=== PATIENT | male | born 1990 | race Hispanic/Latino ===

== ENCOUNTER 2019-04-22 18:29 | Observation (INO) | payer BC, OTHER ==
[2019-04-22] MEDS ORDERED: Ondansetron PF 4 MG/2 ML Vial ONE (18:55)
[2019-04-22] MEDS ORDERED: Ketorolac Tromethamine 30 MG/ML VIAL ONE (18:55)
[2019-04-22] MEDS ORDERED: Morphine 4 MG/ML VIAL ONE (18:55)
[2019-04-22 19:28] LABS: #Basophils 0.1 thou/uL (0.0-0.2); #Monocytes 1.1 thou/uL (0.11-0.59); %Basophils 0.6 % (0.0-1.0); %Eosinophils 0.1 % (0.0-10.0); %Lymphocytes 5.6 % (21.0-51.0); %Monocytes 6.2 % (0.0-10.0); %Neutrophils 87.6 % (42.0-75.0); Hemoglobin 15.3 g/dL (14.0-18.0); Mean Corpuscular HGB CONC 33.5 g/dL (32.0-36.0); Mean Corpuscular Hemoglobin 29.7 pg (27.0-31.0); Mean Corpuscular Volume 88.5 fL (78.0-98.0); Mean Platelet Volume 11.3 fL (7.4-10.4); Platelet Count 205 thou/uL (130-400); RBC Distribution Width 11.9 % (11.5-14.5); Red Blood Cell (RBC) Count 5.16 mill/uL (4.70-6.10); White Blood Cell (WBC) Count 18.3 thou/uL (4.8-10.8)
[2019-04-22 19:47] LABS: ALT (SGPT) 20 U/L (8-55); AST (SGOT) 14 U/L (5-34); Albumin 4.5 g/dL (3.5-5.0); Alkaline Phosphatase 82 U/L (40-150); Anion Gap 15 mmol/L (10-20); BUN (Urea Nitrogen) 11 mg/dL (8.9-20.6); Bilirubin, Total 0.4 mg/dL (0.2-1.2); Calc. Creatinine Clearance 0 mL/min (70-130); Calcium 9.9 mg/dL (7.8-10.44); Carbon Dioxide 26 mmol/L (22-29); Chloride 104 mmol/L (98-107); Estimated GFR-MDRD Greater than 90; Globulin 3.9 g/dL (2.4-3.5); Glucose 111 mg/dL (70-105); Lipase 7 U/L (8-78); Potassium 3.1 mmol/L (3.5-5.1); Protein, Total 8.4 g/dL (6.0-8.3); Sodium 142 mmol/L (136-145)
--- NOTE | 2019-04-22 20:02 | ULT ---
SONOGRAM RIGHT UPPER QUADRANT: 04/22/19 HISTORY: Right upper quadrant pain. FINDINGS: Multiple echogenic shadowing structures are present within the gallbladder lumen. There is thickening of the gallbladder wall and small amount of pericholecystic fluid. Gallbladder is distended to great er than 12 cm. Patient was reportedly tender over the gallbladder fossa at the time of the exam. Comm on duct is slightly dilated at 0.8 cm. Liver is unremarkable. No free fluid. IMPRESSION: Cholelithiasis with multiple sonographic findings of acute cholecystitis, including positive sonograp hic Cope's sign. Common duct is also dilated at 0.8 cm. This raises concern for central biliary obstruction. POS: BST
[2019-04-22] MEDS: Morphine 4 MG/ML VIAL SLOW IVP PRN (22:23)
[2019-04-22] MEDS: Sodium Chloride 0.9% 1,000 ML IV SCH (22:24)
[2019-04-22] MEDS: cefOXitin 2 GM in Sodium Chloride 0.9% 100 ML IVPB SCH (22:24)
[2019-04-22] MEDS: Acetaminophen 1,000 MG in Premix Bag 1 BAG IVPB SCH (23:26)
[2019-04-23] MEDS: Morphine 4 MG/ML VIAL SLOW IVP PRN ×7 (01:23→23:31)
[2019-04-23] MEDS: Acetaminophen 1,000 MG in Premix Bag 1 BAG IVPB SCH (06:24)
[2019-04-23] MEDS: cefOXitin 2 GM in Sodium Chloride 0.9% 100 ML IVPB SCH ×2 (06:25→22:09)
[2019-04-23] MEDS ORDERED: Morphine 2 MG/ML SYRINGE SLOW IVP PRN (07:10)
--- NOTE | 2019-04-23 07:27 | HP ---
CHIEF COMPLAINT: Upper abdominal pain. HISTORY OF PRESENT ILLNESS: This is a 28-year-old male with a history of severe sharp upper abdominal pain, described as 8/10. He describes it as a dull ache in the left upper quadrant, but when the ER physician pushed in his right upper abdomen, he had more severe pain. Ultrasound reveals cholecystitis. He has borderline common bile duct size. He has normal LFTs. He denies previous known history of jaundice, gallstone pancreatitis. PAST MEDICAL HISTORY: He denies. SURGICAL HISTORY: He denies. MEDICINES DAILY: None. ALLERGIES: NO KNOWN DRUG ALLERGIES. SOCIAL HISTORY: No smoking. Occasional alcohol. No other drugs. REVIEW OF SYSTEMS: Ten-system review of systems otherwise negative unless described above. PHYSICAL EXAMINATION: VITAL SIGNS: Blood pressure is 121/74, pulse 94, respirations 16, 99.3 is his temperature. HEENT: Sclerae anicteric. Oropharynx clear. NECK: No lymphadenopathy. CHEST: Clear. HEART: Regular rate and rhythm. ABDOMEN: Soft, tender in the upper abdomen with guarding in the right upper quadrant. No abdominal or inguinal hernias. EXTREMITIES: No ischemic or edema to extremities. IMAGING: Ultrasound shows gallbladder findings suggestive of acute cholecystitis, dilated common bile duct at 8 mm. Liver function tests normal. LABORATORY DATA: White cell count is 18, platelets are 205. ASSESSMENT: Acute cholecystitis with dilated common bile duct. PLAN: Laparoscopic cholecystectomy with intraoperative cholangiogram. Risks, benefits, and alternatives were discussed. He gives consent. We will do this today. Job ID: [id number]
[2019-04-23] MEDS: Sodium Chloride 0.9% 1,000 ML IV SCH ×2 (10:56→22:09)
[2019-04-23] MEDS: Acetaminophen 1,000 MG in Premix Bag 1 BAG IVPB PRN (19:00)
[2019-04-23 23:47] VITALS: BMI 26.8
[2019-04-24] MEDS: Acetaminophen 1,000 MG in Premix Bag 1 BAG IVPB PRN (03:30)
[2019-04-24] MEDS: Sodium Chloride 0.9% 1,000 ML IV SCH ×2 (04:56→14:31)
[2019-04-24] MEDS: cefOXitin 2 GM in Sodium Chloride 0.9% 100 ML IVPB SCH (04:56)
[2019-04-24] MEDS: Morphine 4 MG/ML VIAL SLOW IVP PRN (05:53)
[2019-04-24 06:00] LABS: #Eosinphils 0.1 thou/uL (0.0-0.7); #Lymphocytes 2.4 thou/uL (1.20-3.40); #Monocytes 2.3 thou/uL (0.11-0.59); #Neutrophils 14.1 thou/uL (1.40-6.50); %Basophils 0.2 % (0.0-1.0); %Eosinophils 0.6 % (0.0-10.0); %Lymphocytes 12.6 % (21.0-51.0); %Neutrophils 74.5 % (42.0-75.0); Hemoglobin 13.9 g/dL (14.0-18.0); Mean Corpuscular HGB CONC 33.3 g/dL (32.0-36.0); Mean Corpuscular Hemoglobin 29.6 pg (27.0-31.0); Mean Platelet Volume 9.7 fL (7.4-10.4); Platelet Count 162 thou/uL (130-400); RBC Distribution Width 11.9 % (11.5-14.5); Red Blood Cell (RBC) Count 4.68 mill/uL (4.70-6.10); White Blood Cell (WBC) Count 18.9 thou/uL (4.8-10.8)
[2019-04-24 06:21] LABS: ALT (SGPT) 29 U/L (8-55); AST (SGOT) 25 U/L (5-34); Albumin 3.9 g/dL (3.5-5.0); Alkaline Phosphatase 76 U/L (40-150); Anion Gap 11 mmol/L (10-20); BUN (Urea Nitrogen) 5 mg/dL (8.9-20.6); Calc. Creatinine Clearance 151 mL/min (70-130); Calcium 9.2 mg/dL (7.8-10.44); Carbon Dioxide 24 mmol/L (22-29); Chloride 102 mmol/L (98-107); Estimated GFR-MDRD Greater than 90; Globulin 3.5 g/dL (2.4-3.5); Glucose 106 mg/dL (70-105); Lipase 7 U/L (8-78); Potassium 3.6 mmol/L (3.5-5.1); Protein, Total 7.4 g/dL (6.0-8.3); Sodium 133 mmol/L (136-145)
[2019-04-24] MEDS ORDERED: Morphine 4 MG/ML VIAL ONE (08:31)
[2019-04-24] MEDS ORDERED: Glycopyrrolate 0.2 MG/ML 5 ML SYRINGE ONE (09:09)
[2019-04-24] MEDS ORDERED: PROPOFOL 200 MG/20 ML VIAL ONE (09:09)
[2019-04-24] MEDS ORDERED: Dexamethasone 20 MG/5 ML VIAL ONE (09:09)
[2019-04-24] MEDS ORDERED: Lidocaine 1% PF 5 ML VIAL ONE (09:09)
[2019-04-24] MEDS ORDERED: Rocuronium Bromide 10 MG/ML (10ML VIAL) ONE (09:09)
[2019-04-24] MEDS ORDERED: Ondansetron PF 4 MG/2 ML Vial ONE (09:09)
[2019-04-24] MEDS ORDERED: cefOXitin 2 GM VIAL ONE ×2 (09:44→09:46)
[2019-04-24] MEDS ORDERED: Sodium Chloride 0.9% 100 ML ONE (09:47)
[2019-04-24] MEDS ORDERED: Bupivacaine/Epinephrine 0.25% 30 ML VIAL ONE (09:54)
[2019-04-24] MEDS ORDERED: Iothalamate Meglumine 60% 50 ML VIAL FS ONE (09:54)
[2019-04-24] MEDS ORDERED: Fentanyl 100 MCG/2 ML VIAL ONE (09:59)
[2019-04-24] MEDS ORDERED: cefOXitin 2 GM in Sodium Chloride 0.9% 100 ML IVPB SCH (13:00)
[2019-04-24] MEDS ORDERED: cefOXitin Sodium/Dextrose,Iso 2 GM in Premix Bag 1 BAG IVPB SCH (13:00)
--- NOTE | 2019-04-24 13:25 | RAD ---
INTRAOPERATIVE CHOLANGIOGRAM: Date: 04/24/19 COMPARISON: None. HISTORY: Cholecystectomy. FINDINGS: Single image from an intraoperative cholangiogram provided. There is contrast media within the common bile duct and duodenum. The distal common bile duct appears narrowed, which could signify stricture or could simply be on the basis of incomplete opacification/ distention. No filling defect is seen within the CBD. IMPRESSION: Distal CBD demonstrates nonspecific mild narrowing, which is of uncertain significance on a single vi ew. No filling defect is seen within the common bile duct. POS: OFF
[2019-04-24] MEDS ORDERED: Acetaminophen 325 MG TAB PO PRN (13:54)
[2019-04-24] MEDS ORDERED: HYDROcodone/Acetaminophen 5/325 mg Tablet PO PRN (13:54)
[2019-04-24] MEDS ORDERED: Promethazine 25 MG TAB PO PRN (13:54)
[2019-04-24] MEDS ORDERED: Ibuprofen 200 MG TAB PO PRN (13:54)
--- NOTE | 2019-04-24 14:31 | PDOC.OP ---
Operative Note - Operative Note Operative Note: DATE OF PROCEDURE: 04/24/2019 PROCEDURES: Laparoscopic cholecystectomy with intraoperative cholangiogram. SURGEON: Joycelyn Lakhani M.D. PREOPERATIVE DIAGNOSIS: Cholelithiasis and cholecystitis POSTOPERATIVE DIAGNOSIS: Cholelithiasis and cholecystitis FINDINGS: Severely inflamed and thickened gallbladder, normal intraoperative cholangiogram HISTORY: Patient with signs and symptoms of cholecystitis. Laparoscopic cholecystectomy was recommended for symptomatic relief and prevention of future episodes. Intraoperative cholangiogram was also recommended due to a dilated common bile duct. PROCEDURE: After informed consent was obtained and appropriate preoperative antibiotics were administered, the patient was taken to the operating room and placed in the supine position and general endotracheal anesthesia was administered. The stomach was decompressed with an OG tube and the abdomen was prepped and draped in standard sterile fashion. Local anesthesia was infused to the skin and subcutaneous tissues at the umbilical level. A transverse skin incision was made. The fascia was elevated and a Veress needle was placed into the abdominal cavity without difficulty. Opening pressure was less than 5 and carbon dioxide gas easily insufflated to an intra-abdominal pressure of 15, which the patient tolerated well. The Veress needle was withdrawn and a [place] port advanced under direct vision. The abdominal cavity was carefully examined. There was no evidence of Veress needle or of trocar injury. Local anesthesia was infused to the skin and subcutaneous tissues at the epigastric, right upper quadrant, and right lateral abdominal sites and trocars were placed under direct vision of the laparoscope. The gallbladder was entirely obscured by omentum but the omental adhesions were acute and were able to be dissected bluntly off of the gallbladder exposing the very distended and inflamed gallbladder. The fundus of the gallbladder was too taut to grasp so was aspirated with removal of a large amount of thick dark bile. The fundus of the gallbladder was grasped and retracted superiorly. The lower portion of the gallbladder was encased in thick inflamed fat in the infundibulum was not clearly visible, therefore the serosa was stripped inferiorly, exposing the wall of the gallbladder which was traced down to the infundibulum. The infundibulum was grasped and retracted laterally. The fatty tissue was meticulously dissected free of the structures at the level of the neck of the gallbladder exposing the cystic duct and artery which were traced clearly to their insertion in the gallbladder. The cystic artery was anterior to the cystic duct and was clipped and divided to gain access to the cystic duct. The cystic duct was clipped at the level of the neck of the gallbladder. An incision was made in the cystic duct inferior to the clip and the cystic duct was palpated with no stones palpable. Clear bile was seen to flow from the cystic duct incision. A cholangiogram catheter was introduced and placed into the cystic duct and secured with a clip. A cholangiogram was obtained which showed an adequate length of cystic duct. There was normal filling of the common bile duct with free flow of contrast into the duodenum. There was normal retrograde flow into the common hepatic duct beyond the level of the bifurcation without filling defects. The cholangiogram catheter was removed and the cystic duct clipped below the incision in the cystic duct. The cystic duct was divided between these clips and the previously placed clip. The gallbladder was then dissected free of the gallbladder bed using hook electrocautery with moderate difficulty due to the inflamed thickened nature of the gallbladder wall and the severe edema in the wall of the gallbladder. Prior to complete removal of the gallbladder from the gallbladder bed, the area of the cystic duct and artery stumps was examined. The clips were in good position completely across these structures and there was no bleeding and no leakage of bile. The gallbladder was then placed into an EndoCatch bag and drawn out through the epigastric incision, after crushing and removing several stones. Due to the very thickened and inflamed nature of the gallbladder, the wall tore during extraction and the gallbladder was removed in multiple pieces. The epigastric trocar was replaced and the operative site easily irrigated to clear. There was no significant bleeding or spillage of bile. The epigastric trocar was removed and the fascia closed under direct laparoscopic vision with a 0 Vicryl suture on a [place] needle in a [id number] manner with excellent technical result. The right upper quadrant and right lateral abdominal trocars were removed and hemostasis verified. Carbon dioxide gas was allowed to desufflate through the umbilical trocar which was then removed. The skin incisions were closed with 4-0 subcuticular Monocryl sutures and Dermabond dressings were placed. The patient was extubated and taken to the recovery room in good condition. There were no complications. ESTIMATED BLOOD LOSS: Minimal. SPECIMEN : Gallbladder and contents.
[2019-04-24 15:50] VITALS: BP 130/70; TEMP 98.3
== END 2019-04-24 17:20 | disposition home or self-care (01) ==
LOC: SCSER 18:29 → SURG B 20:15
PROVIDERS: ADMIT Surgery; ATTEND Surgery
PROC: 0FT44ZZ Resection of Gallbladder, Percutaneous Endoscopic Approach (ICD-10-PCS; principal; 2019-04-24)
PROC: BF031ZZ Plain Radiography of Gallbladder and Bile Ducts using Low Osmolar Contrast (ICD-10-PCS; 2019-04-24)
DX: K80.00 Calculus of gallbladder with acute cholecystitis without obstruction (principal)
CPT/HCPCS: 36415; 36416; 47532; 76705; 80053; 83690; 85025; 88304; 96361; 96365; 96366; 96374; 96375; 96376; G0378; J0131; J0694; J1100; J1610; J1885; J2001; J2270; J2405; J2704; J3010; J3490

== ENCOUNTER 2020-06-30 15:07 | Outpatient (CLI) | payer OTHER | END 2020-06-30 15:08 | disposition home or self-care (01) | LOC: DTY/OP 15:07 | PROVIDERS: ATTEND Family Medicine | DX: E66.3 Overweight (principal); Z90.49 Acquired absence of other specified parts of digestive tract | CPT/HCPCS: 97802 ==

== ENCOUNTER 2022-12-07 10:24 | Outpatient (CLI) | payer OTHER | END 2022-12-07 10:25 | disposition home or self-care (01) | LOC: BICRAD 10:24 | PROVIDERS: ATTEND Family Medicine | DX: M54.50 Low back pain, unspecified (principal) | CPT/HCPCS: 72100 ==

== ENCOUNTER 2022-12-17 18:00 | Outpatient (CLI) | payer OTHER | END 2022-12-17 18:01 | disposition home or self-care (01) | LOC: SLEEPLAB 18:00 | PROVIDERS: ATTEND Family Medicine | DX: G47.9 Sleep disorder, unspecified (principal); R06.83 Snoring | CPT/HCPCS: 95800 ==

== ENCOUNTER 2023-07-12 10:31 | Day surgery (SDC) | payer OTHER ==
[2023-07-11 13:30] VITALS: BMI 25.0
[2023-07-12] MEDS ORDERED: PROPOFOL 200 MG/20 ML VIAL ONE (14:08)
== END 2023-07-12 15:28 | disposition home or self-care (01) ==
LOC: SDC 10:31
PROVIDERS: ATTEND Internal Medicine Gastroenterology
PROC: 0DJD8ZZ Inspection of Lower Intestinal Tract, Via Natural or Artificial Opening Endoscopic (ICD-10-PCS; principal; 2023-07-12)
PROC: 0DB38ZX Excision of Lower Esophagus, Via Natural or Artificial Opening Endoscopic, Diagnostic (ICD-10-PCS; principal; 2023-07-12)
DX: K21.00 Gastro-esophageal reflux disease with esophagitis, without bleeding (principal); K31.89 Other diseases of stomach and duodenum; K22.10 Ulcer of esophagus without bleeding; K29.50 Unspecified chronic gastritis without bleeding; K44.9 Diaphragmatic hernia without obstruction or gangrene; K64.9 Unspecified hemorrhoids; G47.30 Sleep apnea, unspecified; K21.9 Gastro-esophageal reflux disease without esophagitis; Z90.49 Acquired absence of other specified parts of digestive tract; Z80.0 Family history of malignant neoplasm of digestive organs; Z79.899 Other long term (current) drug therapy
CPT/HCPCS: 88305; J2704

== ENCOUNTER 2024-02-06 09:12 | Outpatient (CLI) | payer OTHER | END 2024-02-06 09:13 | disposition home or self-care (01) | LOC: BICRAD 09:12 | PROVIDERS: ATTEND Physician Assistant Surgical | DX: S32.011A Stable burst fracture of first lumbar vertebra, initial encounter for closed fracture (principal); S32.010A Wedge compression fracture of first lumbar vertebra, initial encounter for closed fracture | CPT/HCPCS: 72100 ==